=== PATIENT | female | born 1955 | race African-American/Black ===

== ENCOUNTER 2017-02-27 18:34 | Inpatient (IN) | payer OTHER ==
[~2017-02-27] VITALS: Ht 167.6 cm; Wt 82.6 kg
[~2017-02-27 18:34] MED LIST: AMOX1TAB11 PO; FLUC100T7 PO
[2017-02-27 19:30] VITALS: BP 138/79
[2017-02-27] MEDS ORDERED: HYOSCYAMINE 0.125 MG TAB.RAPDIS PO PRN (21:30)
[2017-02-27] MEDS: oxyCODONE/APAP 10/325 1 TAB TABLET PO PRN (22:39)
[2017-02-27 23:00] VITALS: BP 117/79
[2017-02-27] MEDS: ATORVASTATIN CALCIUM 40 MG TABLET. PO SCH (23:10)
[2017-02-27] MEDS: DICYCLOMINE HCL 10 MG CAPSULE PO SCH (23:10)
[2017-02-27] MEDS: LATANOPROST 0.005% OPHTH SOLUTION 2.5ML BOTTLE. OU SCH (23:10)
[2017-02-27] MEDS: INSULIN DETEMIR 300 UNITS/3 ML INSULN.PEN. SQ SCH (23:17)
[2017-02-27] MEDS: CLINDAMYCIN 600MG PREMIX 50 ML IV SCH (23:41)
[2017-02-28] MEDS: fentaNYL PF VIAL 100 MCG/2 ML VIAL IV PRN ×2 (00:05→03:27)
[2017-02-28] MEDS: METOCLOPRAMIDE 5 MG TABLET. PO SCH ×5 (00:05→19:52)
[2017-02-28 02:27] LABS: BASO # 0.1 x10^3/uL (0.0-0.2); BASO % 1 % (0-3); EOS % 1 % (0-3); HEMOGLOBIN 11.5 g/dL (12.0-15.5); LYMPH # 3.1 x10^3/uL (1.0-4.8); LYMPH % 24 % (24-48); MEAN CORPUSCULAR HEMOGLOBIN 25 pg (25-35); MEAN CORPUSCULAR HGB CONC 32 g/dL (31-37); MEAN CORPUSCULAR VOLUME 78 fL (79-100); MONO % 7 % (0-9); NEUT % 68 % (31-73); PLATELET COUNT 384 x10^3/uL (140-400); RED BLOOD COUNT 4.61 x10^6/uL (3.50-5.40); WHITE BLOOD COUNT 13.2 x10^3/uL (4.0-11.0)
[2017-02-28 02:54] LABS: ALBUMIN 3.2 g/dL (3.4-5.0); ALBUMIN/GLOBULIN RATIO 0.8 (1.0-1.7); CREATININE 0.8 mg/dL (0.6-1.0); GFR 87.7; POTASSIUM 3.9 mmol/L (3.5-5.1); TOTAL BILIRUBIN 0.3 mg/dL (0.2-1.0); TOTAL PROTEIN 7.3 g/dL (6.4-8.2)
[2017-02-28 03:13] VITALS: BP 114/70
[2017-02-28] MEDS: CLINDAMYCIN 600MG PREMIX 50 ML IV SCH ×4 (05:54→23:56)
[2017-02-28] MEDS: oxyCODONE/APAP 10/325 1 TAB TABLET PO PRN ×2 (06:46→19:52)
[2017-02-28 07:00] VITALS: BP 151/76
[2017-02-28] MEDS: DICYCLOMINE HCL 10 MG CAPSULE PO SCH ×4 (07:50→21:13)
[2017-02-28] MEDS: ASPIRIN ENTERIC COATED 81 MG TABLET.DR. PO SCH (07:51)
[2017-02-28] MEDS: PANTOPRAZOLE 40 MG TABLET.DR. PO SCH (07:51)
[2017-02-28] MEDS: CARVEDILOL 12.5 MG TABLET. PO SCH ×2 (07:51→17:00)
[2017-02-28] MEDS: LOSARTAN POTASSIUM 50 MG TABLET. PO SCH (07:51)
[2017-02-28] MEDS: INSULIN ASPART 300 UNITS/3 ML INSULN.PEN SQ SCH ×3 (08:00→16:30)
[2017-02-28] MEDS ORDERED: CLINDAMYCIN HCL 150 MG CAPSULE. PO ONE (09:45)
[2017-02-28 11:00] VITALS: BP 119/52
[2017-02-28] MEDS ORDERED: HYDROmorphone 2 MG/ML VIAL IM ONE (11:45)
--- NOTE | 2017-02-28 12:26 | PDOC ---
Provider Note Provider Note Pt seen.H&P dictated. #[id number] BENITO ANGULO MD February 28, 2017 12:25
--- NOTE | 2017-02-28 14:11 | HP ---
ADMIT DATE: 02/27/2017 LOCATION: 424. REASON FOR ADMISSION TO THE HOSPITAL: Infected abscess in the right axilla; diabetes; hidradenitis, recurrent. HISTORY OF PRESENT ILLNESS: The patient is a 61-year-old female, patient known to us. She has a history of hidradenitis with infections on and off in the past and she had seen General Surgery, Plastic Surgery, has been to multiple hospitals, she gets flareups on and off. She was having pain, fever, and drainage from the infected nodes in the axilla, was admitted to the hospital. PAST MEDICAL HISTORY: She has a history of type 2 diabetes, diabetic retinopathy, gastroparesis, neuropathy, hypotension, asthma, hyperlipidemia, atherosclerosis, schizoaffective disorders. PAST SURGICAL HISTORY: ; hysterectomy; salpingo-oophorectomy; had EGDs; cardiac catheterization in 2009, coronary spasm at that time; she had multiple surgeries pertaining to the abscess. ALLERGIES: SHE IS ALLERGIC TO METRONIDAZOLE, VANCOMYCIN, AND LISINOPRIL. PER THE PATIENT, SHE HAD A SEVERE ANAPHYLACTIC REACTION WITH METRONIDAZOLE. FAMILY HISTORY: Diabetes, hypertension, pulmonary embolism in father. MEDICATIONS: Aspirin 81 mg daily, Humalog 55 units 3 times daily, Lantus 65 at bedtime, eyedrops latanoprost daily, Lipitor 40 mg daily, losartan 50 mg daily, Percocet 10 mg q. 8 hours, ProAir 2 puffs 4 times daily, Phenergan 25 mg daily, Protonix 40 mg daily, Travatan eyedrops daily, Zofran for nausea. She is on Reglan. PERSONAL HISTORY: Smokes half a pack. Denies alcohol. Denies any street drugs, but she takes narcotic pain medications. REVIEW OF SYMPTOMS: Complains of pain, fever, and drainage. Rest of her system was reviewed and negative. PHYSICAL EXAMINATION: GENERAL: The patient is in pain. VITAL SIGNS: Temperature 98, pulse 98, respirations 18, blood pressure 117/79, 97 on room air. HEENT: Head is atraumatic. Pupils equal. Oral cavity: No congestion. NECK: Supple. Thyroid not enlarged. JVD not elevated. CHEST: Symmetrical, has some keloids in the chest. CARDIOVASCULAR: S1, S2. LUNGS: Clear to auscultation. ABDOMEN: Soft, no mass palpable. EXTERNAL GENITALIA: No Mukherjee. RECTAL: Deferred. EXTREMITIES: No calf tenderness. The patient has tenderness with swelling in the right axilla with some pus coming out. LABORATORY DATA: Shows a white count of 13, hemoglobin 11.5, platelets 384. Electrolytes show sodium 138, potassium 3.9, chloride 102, bicarbonate 27, BUN 13, creatinine 0.8, glucose 167. LFT was normal. FINAL IMPRESSION: 1. Abscess, axilla. 2. History of hidradenitis. 3. Diabetes, insulin-dependent. 4. Complications from diabetes including diabetic neuropathy, gastroparesis. 5. Hypertension and hyperlipidemia. 6. Severe allergies to vancomycin, metronidazole, and lisinopril. PLAN: At this time, admit to hospital, start on clindamycin, IV pain control with Dilaudid. ID is consulted. Further recommendations to follow. Wound cultures. BENITO ANGULO MD DR: JCARLOS/parul JOB#: [id number] / [id number]
[2017-02-28 15:00] VITALS: BP 128/85
[2017-02-28] MEDS: PROMETHAZINE 12.5 MG TABLET. PO PRN ×2 (15:06→23:55)
[2017-02-28] MEDS: LIDO:MAALOX:DONNATAL 1:1:1 15 ML SINGLE DOSE SWSW PRN (17:54)
[2017-02-28 19:00] VITALS: BP 141/103
[2017-02-28] MEDS: ATORVASTATIN CALCIUM 40 MG TABLET. PO SCH (21:13)
[2017-02-28] MEDS: INSULIN DETEMIR 300 UNITS/3 ML INSULN.PEN. SQ SCH (21:14)
[2017-02-28] MEDS: HYDROmorphone 2 MG/ML VIAL IV PRN (23:55)
[2017-03-01] VITALS (7 sets, daily range): BP systolic 83–141; BP diastolic 44–100
[2017-03-01] MEDS: HYDROmorphone 2 MG/ML VIAL IV PRN ×6 (03:19→21:44)
[2017-03-01 05:23] LABS: BASO # 0.1 x10^3/uL (0.0-0.2); BASO % 1 % (0-3); EOS % 2 % (0-3); HEMATOCRIT 40.2 % (36.0-47.0); HEMOGLOBIN 12.6 g/dL (12.0-15.5); LYMPH # 2.9 x10^3/uL (1.0-4.8); LYMPH % 25 % (24-48); MEAN CORPUSCULAR HEMOGLOBIN 25 pg (25-35); MEAN CORPUSCULAR HGB CONC 31 g/dL (31-37); MEAN CORPUSCULAR VOLUME 80 fL (79-100); MONO % 7 % (0-9); NEUT % 66 % (31-73); PLATELET COUNT 323 x10^3/uL (140-400); RED BLOOD COUNT 5.01 x10^6/uL (3.50-5.40); RED CELL DISTRIBUTION WIDTH 16.1 % (11.5-14.5); WHITE BLOOD COUNT 11.6 x10^3/uL (4.0-11.0)
[2017-03-01 05:30] LABS: CALCIUM 9.6 mg/dL (8.5-10.1); CREATININE 0.8 mg/dL (0.6-1.0); GFR 87.7; POTASSIUM 4.5 mmol/L (3.5-5.1)
[2017-03-01] MEDS: CLINDAMYCIN 600MG PREMIX 50 ML IV SCH ×3 (06:20→21:45)
[2017-03-01] MEDS: INSULIN ASPART 300 UNITS/3 ML INSULN.PEN SQ SCH ×3 (08:06→17:05)
[2017-03-01] MEDS: PROMETHAZINE 12.5 MG TABLET. PO PRN (08:07)
[2017-03-01] MEDS: PANTOPRAZOLE 40 MG TABLET.DR. PO SCH (08:08)
[2017-03-01] MEDS: CARVEDILOL 12.5 MG TABLET. PO SCH ×2 (08:08→17:01)
[2017-03-01] MEDS: LOSARTAN POTASSIUM 50 MG TABLET. PO SCH (08:09)
[2017-03-01] MEDS: METOCLOPRAMIDE 5 MG TABLET. PO SCH ×4 (08:09→21:44)
[2017-03-01] MEDS: DICYCLOMINE HCL 10 MG CAPSULE PO SCH ×4 (08:09→21:44)
[2017-03-01] MEDS: ASPIRIN ENTERIC COATED 81 MG TABLET.DR. PO SCH (08:09)
--- NOTE | 2017-03-01 10:50 | PDOC ---
PROGRESS NOTES Subjective Subjective Pt smiling today Objective Objective Vital Signs Date Time Temp Pulse Resp B/P (MAP) Pulse Ox O2 Delivery O2 Flow Rate FiO2 03/01/17 10:23 16 92 Room Air 03/01/17 08:09 61 130/67 03/01/17 07:00 97.6 97.6 03/01/17 00:18 97.0 Intake and Output 03/01/17 07:00 Intake Total 1220 ml Output Total 100 ml Balance 1120 ml Intake Oral 1220 ml Output Emesis 100 ml # Voids 4 Physical Exam Abdomen: Normal bowel sounds, Soft Heart: Regular rate, Normal S1 Extremities: No clubbing General: Alert HEENT: Atraumatic Lungs: Clear to auscultation MUSCULOSKELETAL: No deformity Neck: Supple Neuro: Normal speech Psych/Mental Status: Mental status NL COMMENT drainage from axilla rt Assessment Assessment FINAL IMPRESSION: 1. Abscess, axilla. 2. History of hidradenitis. 3. Diabetes, insulin-dependent. 4. Complications from diabetes including diabetic neuropathy, gastroparesis. 5. Hypertension and hyperlipidemia. 6. Severe allergies to vancomycin, metronidazole, and lisinopril. PLAN: Mid line catheter placed yesterday. IV dilaudid. IV Clindamycin. wbc trending down.11 At this time, admit to hospital, start on clindamycin, IV pain control with Dilaudid. ID is consulted. Further recommendations to follow. Wound cultures. Problems: Comment Review of Relevant I have reviewed the following items amelie (where applicable) has been applied. Labs Laboratory Tests Test 02/28/17 11:42 02/28/17 12:31 02/28/17 16:20 02/28/17 20:28 Glucose (Fingerstick) 114 mg/dL (70-99) 114 mg/dL (70-99) 180 mg/dL (70-99) 168 mg/dL (70-99) Test 03/01/17 04:10 03/01/17 07:13 White Blood Count 11.6 x10^3/uL (4.0-11.0) Red Blood Count 5.01 x10^6/uL (3.50-5.40) Hemoglobin 12.6 g/dL (12.0-15.5) Hematocrit 40.2 % (36.0-47.0) Mean Corpuscular Volume 80 fL (79-100) Mean Corpuscular Hemoglobin 25 pg (25-35) Mean Corpuscular Hemoglobin Concent 31 g/dL (31-37) Red Cell Distribution Width 16.1 % (11.5-14.5) Platelet Count 323 x10^3/uL (140-400) Neutrophils (%) (Auto) 66 % (31-73) Lymphocytes (%) (Auto) 25 % (24-48) Monocytes (%) (Auto) 7 % (0-9) Eosinophils (%) (Auto) 2 % (0-3) Basophils (%) (Auto) 1 % (0-3) Neutrophils # (Auto) 7.6 x10^3uL (1.8-7.7) Lymphocytes # (Auto) 2.9 x10^3/uL (1.0-4.8) Monocytes # (Auto) 0.8 x10^3/uL (0.0-1.1) Eosinophils # (Auto) 0.2 x10^3/uL (0.0-0.7) Basophils # (Auto) 0.1 x10^3/uL (0.0-0.2) Sodium Level 138 mmol/L (136-145) Potassium Level 4.5 mmol/L (3.5-5.1) Chloride Level 102 mmol/L (98-107) Carbon Dioxide Level 26 mmol/L (21-32) Anion Gap 10 (6-14) Blood Urea Nitrogen 14 mg/dL (7-20) Creatinine 0.8 mg/dL (0.6-1.0) Estimated GFR (Cockcroft-Gault) 87.7 Glucose Level 138 mg/dL (70-99) Calcium Level 9.6 mg/dL (8.5-10.1) Triglycerides Level 88 mg/dL (0-150) Cholesterol Level 200 mg/dL (0-200) LDL Cholesterol, Calculated 116 mg/dL (0-100) VLDL Cholesterol, Calculated 18 mg/dL (0-40) Non-HDL Cholesterol Calculated 134 mg/dL (0-129) HDL Cholesterol 66 mg/dL (40-60) Cholesterol/HDL Ratio 3.0 Thyroid Stimulating Hormone (TSH) 4.555 uIU/mL (0.358-3.74) Glucose (Fingerstick) 153 mg/dL (70-99) Microbiology 02/27/17 Gram Stain - Final, Complete Medications Current Medications Hydromorphone HCl (Dilaudid) 2 mg PRN Q3HRS PRN IV PAIN Last administered on 09:53; Start 02/28/17 at 11:45 Hydromorphone HCl (Dilaudid) 4 mg 1X ONCE IM Last administered on 02/28/17 11 :49; Start 02/28/17 at 11:45; Stop 02/28/17 at 12:05; Status DC Latanoprost (Xalatan) 1 drop QHS OU Last administered on 02/27/17 23:10; Start 02/28/17 at 21:00 Multi-Ingredient Mouthwash/Gargle (Gi Cocktail Single Dose) 15 ml PRN QID PRN SWSW GI SYMPTOMS Last administered on 02/28/17 17:54; Start 02/28/17 at 17:45 Ondansetron HCl (Zofran) 4 mg PRN Q6HRS PRN IV NAUSEA/VOMITING; Start 03/01/17 at 10:45 Vitals/I & O Vital Sign - Last 24 Hours 02/28/17 02/28/17 02/28/17 02/28/17 11:00 11:49 12:19 15:00 Temp 98.0 97.5 98.0 97.5 Pulse 76 86 Resp 18 16 16 20 B/P (MAP) 119/52 (74) 128/85 (99) Pulse Ox 97 97 97 99 O2 Delivery Room Air Room Air Room Air Room Air 02/28/17 02/28/17 03/01/17 03/01/17 19:00 19:45 00:18 03:28 Temp 97.5 97.8 98.0 97.5 97.8 98.0 Pulse 93 66 86 Resp 20 22 B/P (MAP) 141/103 (116) 133/89 (104) 141/100 (114) Pulse Ox 98 98 O2 Delivery Room Air Room Air Room Air Room Air O2 Flow Rate 97.0 03/01/17 03/01/17 03/01/17 03/01/17 07:00 08:00 08:08 08:09 Temp 97.6 97.6 Pulse 61 61 61 Resp 20 B/P (MAP) 130/67 (88) 130/67 130/67 Pulse Ox 92 O2 Delivery Room Air Room Air 03/01/17 03/01/17 09:53 10:23 Resp 16 16 Pulse Ox 92 92 O2 Delivery Room Air Room Air Intake and Output 02/28/17 02/28/17 03/01/17 15:00 23:00 07:00 Intake Total 1020 ml 200 ml Output Total 100 ml Balance 920 ml 200 ml BENITO ANGULO MD March 01, 2017 10:50
[2017-03-01] MEDS ORDERED: ONDANSETRON PF 4 MG/2 ML VIAL. IV PRN (11:00)
[2017-03-01] MEDS: ONDANSETRON PF 4 MG/2 ML VIAL. IV PRN ×2 (11:23→18:23)
--- NOTE | 2017-03-01 12:21 | ACF ---
Admission Forms Criteria WOUND COMPLICATIONS Clinical Indications for Inpatient Care (Place 'X' for any and all applicable criteria): Ongoing inpatient care may be indicated for wound complications with ANY ONE of the following (1) (15): [ ]I. Infection with ANY ONE of the following(32)(33): [ ]a) Temperature greater than 38.5 C (101.3 F) [ ]b) Evidence of tissue necrosis [ ]c) Erythema diameter expanding around wound despite treatment [ ]d) Mental status changes [ ]e) Dehydration [ ]f) Bacteremia [ ]g) Hemodynamic instability [ ]h) Suspected necrotizing fasciitis [ ]i) Rapidly spreading lesions [ ]j) High-risk location (eg, perineum, sternum, orbit) [ ]k) High-risk coexisting clinical condition as indicated by ANY ONE of the following: [ ]i) Poorly controlled diabetes [ ]ii) Cirrhosis [ ]iii) Renal failure [ ]iv) Neutropenia [ ] v) Asplenia [ ]vi) Immunosuppression (eg, AIDS, chronic corticosteroid use) [ ]viii) Other high-risk medical comorbidities [ ] II. Dehiscence requiring frequent monitoring or immediate treatment [ ] III. Hematoma with ANY ONE of the following: [ ]a) Hemodynamic instability or acute anemia due to rapid development of hematoma [ ]b) Neck hematoma causing airway compression [ ]c) Retroperitoneal hematoma [ ]d) Uncontrolled coagulopathy [ ]IV. Seroma with evidence of secondary infection and requirement for IV antibiotics [D](31) [X]V. Pain that cannot be managed at lower level of care Extended stay beyond goal length of stay for primary condition may be needed until ALL of the following are present(1)(33)(34): [ ]a) Afebrile or fever resolving [ ]b) Hemodynamic stability [ ]c) Pain resolving [ ]d) Wound closed, continuity adequately restored, or wound manageable at lower level of care [ ]e) No drain needed or drain care manageable at lower level of care [ ]f) Wound hematoma or seroma resolving [ ]g) Antibiotics not needed or regimen manageable at lower level of care(38) [ ]h) Dressing care manageable at lower level of care [ ]i) Coagulopathy absent, resolved, or treatable at lower level of care [ ]j) Medical comorbidities resolved or treatable at lower level of care The original [facility] [employer] content created by Raghav Nicolas has been revised. The portions of the content which have been revised are identified through the use of italic text or in bold, and Raghav Nicolas has neither reviewed nor approved the modified material. All other unmodified content is copyright Raghav Nicolas. Please see references footnoted in the original Raghav Nicolas edition 2016 Admission Criteria Met?: Yes ARMAAN HOANG March 01, 2017 12:21
[2017-03-01] MEDS: LIDO:MAALOX:DONNATAL 1:1:1 15 ML SINGLE DOSE SWSW PRN (18:28)
[2017-03-01] MEDS: INSULIN DETEMIR 300 UNITS/3 ML INSULN.PEN. SQ SCH (21:00)
[2017-03-01] MEDS: LATANOPROST 0.005% OPHTH SOLUTION 2.5ML BOTTLE. OU SCH (21:44)
[2017-03-01] MEDS: ATORVASTATIN CALCIUM 40 MG TABLET. PO SCH (21:44)
[2017-03-02 03:02] VITALS: BP 120/70
[2017-03-02 05:18] LABS: BASO # 0.1 x10^3/uL (0.0-0.2); BASO % 1 % (0-3); EOS % 2 % (0-3); HEMOGLOBIN 12.5 g/dL (12.0-15.5); LYMPH # 2.5 x10^3/uL (1.0-4.8); LYMPH % 25 % (24-48); MEAN CORPUSCULAR HEMOGLOBIN 26 pg (25-35); MEAN CORPUSCULAR HGB CONC 34 g/dL (31-37); MEAN CORPUSCULAR VOLUME 78 fL (79-100); MONO % 7 % (0-9); NEUT % 66 % (31-73); PLATELET COUNT 353 x10^3/uL (140-400); RED BLOOD COUNT 4.76 x10^6/uL (3.50-5.40); RED CELL DISTRIBUTION WIDTH 15.7 % (11.5-14.5); WHITE BLOOD COUNT 10.1 x10^3/uL (4.0-11.0)
[2017-03-02] MEDS: CLINDAMYCIN 600MG PREMIX 50 ML IV SCH ×3 (06:00→21:55)
[2017-03-02] MEDS: HYDROmorphone 2 MG/ML VIAL IV PRN ×4 (06:31→20:42)
[2017-03-02 07:00] VITALS: BP 123/63
[2017-03-02] MEDS: PANTOPRAZOLE 40 MG TABLET.DR. PO SCH (08:06)
[2017-03-02] MEDS: LOSARTAN POTASSIUM 50 MG TABLET. PO SCH (08:07)
[2017-03-02] MEDS: ASPIRIN ENTERIC COATED 81 MG TABLET.DR. PO SCH (08:07)
[2017-03-02] MEDS: DICYCLOMINE HCL 10 MG CAPSULE PO SCH ×4 (08:07→20:38)
[2017-03-02] MEDS: CARVEDILOL 12.5 MG TABLET. PO SCH ×2 (08:08→17:13)
[2017-03-02] MEDS: METOCLOPRAMIDE 5 MG TABLET. PO SCH ×4 (08:08→20:38)
[2017-03-02] MEDS: INSULIN ASPART 300 UNITS/3 ML INSULN.PEN SQ SCH ×3 (08:16→17:19)
[2017-03-02 11:00] VITALS: BP 109/63
--- NOTE | 2017-03-02 11:29 | PDOC ---
PROGRESS NOTES Subjective Subjective worried that she is developing rash with antibiotics Objective Objective Vital Signs Date Time Temp Pulse Resp B/P (MAP) Pulse Ox O2 Delivery O2 Flow Rate FiO2 03/02/17 08:16 Room Air 03/02/17 08:08 72 123/63 03/02/17 07:00 98.4 20 94 98.4 03/01/17 19:45 97.0 Intake and Output 03/02/17 07:00 Intake Total 960 ml Balance 960 ml Intake Oral 960 ml # Voids 5 Physical Exam Abdomen: Normal bowel sounds, Soft Heart: Regular rate, Normal S1 Extremities: No clubbing General: Alert HEENT: Atraumatic Lungs: Clear to auscultation MUSCULOSKELETAL: No deformity Neck: Supple Neuro: Normal speech Psych/Mental Status: Mental status NL COMMENT drainage from axilla rt Assessment Assessment FINAL IMPRESSION: 1. Abscess, axilla. 2. History of hidradenitis. 3. Diabetes, insulin-dependent. 4. Complications from diabetes including diabetic neuropathy, gastroparesis. 5. Hypertension and hyperlipidemia. 6. Severe allergies to vancomycin, metronidazole, and lisinopril. PLAN: watch for rashes,running out of meds due to allergy to multiple meds Mid line catheter placed . IV dilaudid. IV Clindamycin.c/s neg wbc trending down.10 At this time, admit to hospital, start on clindamycin, IV pain control with Dilaudid. ID is consulted. Further recommendations to follow. Wound cultures. Problems: Comment Review of Relevant I have reviewed the following items amelie (where applicable) has been applied. Labs Laboratory Tests Test 03/01/17 11:41 03/01/17 16:24 03/01/17 21:02 03/02/17 04:26 Glucose (Fingerstick) 67 mg/dL (70-99) 146 mg/dL (70-99) 76 mg/dL (70-99) White Blood Count 10.1 x10^3/uL (4.0-11.0) Red Blood Count 4.76 x10^6/uL (3.50-5.40) Hemoglobin 12.5 g/dL (12.0-15.5) Hematocrit 37.0 % (36.0-47.0) Mean Corpuscular Volume 78 fL (79-100) Mean Corpuscular Hemoglobin 26 pg (25-35) Mean Corpuscular Hemoglobin Concent 34 g/dL (31-37) Red Cell Distribution Width 15.7 % (11.5-14.5) Platelet Count 353 x10^3/uL (140-400) Neutrophils (%) (Auto) 66 % (31-73) Lymphocytes (%) (Auto) 25 % (24-48) Monocytes (%) (Auto) 7 % (0-9) Eosinophils (%) (Auto) 2 % (0-3) Basophils (%) (Auto) 1 % (0-3) Neutrophils # (Auto) 6.7 x10^3uL (1.8-7.7) Lymphocytes # (Auto) 2.5 x10^3/uL (1.0-4.8) Monocytes # (Auto) 0.7 x10^3/uL (0.0-1.1) Eosinophils # (Auto) 0.2 x10^3/uL (0.0-0.7) Basophils # (Auto) 0.1 x10^3/uL (0.0-0.2) Test 03/02/17 07:38 Glucose (Fingerstick) 158 mg/dL (70-99) Microbiology 02/27/17 Gram Stain - Final, Complete Vitals/I & O Vital Sign - Last 24 Hours 03/01/17 03/01/17 03/01/17 03/01/17 13:15 14:59 17:01 18:23 Temp 97.4 97.4 Pulse 74 74 Resp 16 20 16 B/P (MAP) 101/64 (76) 101/64 Pulse Ox 96 94 94 O2 Delivery Room Air Room Air Room Air 03/01/17 03/01/17 03/01/17 03/01/17 18:53 19:45 19:50 23:08 Temp 97.5 97.8 97.5 97.8 Pulse 74 62 Resp 16 18 18 B/P (MAP) 83/44 (57) 104/59 (74) Pulse Ox 94 93 96 O2 Delivery Room Air Room Air Room Air O2 Flow Rate 97.0 03/02/17 03/02/17 03/02/17 03/02/17 03:02 07:00 08:07 08:08 Temp 97.5 98.4 97.5 98.4 Pulse 90 72 90 72 Resp 18 20 B/P (MAP) 120/70 (87) 123/63 (83) 120/70 123/63 Pulse Ox 96 94 O2 Delivery Room Air Room Air 03/02/17 08:16 O2 Delivery Room Air Intake and Output 03/01/17 03/01/17 03/02/17 15:00 23:00 07:00 Intake Total 380 ml 580 ml Balance 380 ml 580 ml BENITO ANGULO MD March 02, 2017 11:29
[2017-03-02 15:00] VITALS: BP 108/61
[2017-03-02] MEDS: oxyCODONE/APAP 10/325 1 TAB TABLET PO PRN (18:22)
[2017-03-02 19:34] VITALS: BP 104/48
[2017-03-02] MEDS: LATANOPROST 0.005% OPHTH SOLUTION 2.5ML BOTTLE. OU SCH (20:38)
[2017-03-02] MEDS: ATORVASTATIN CALCIUM 40 MG TABLET. PO SCH (20:38)
[2017-03-02] MEDS: INSULIN DETEMIR 300 UNITS/3 ML INSULN.PEN. SQ SCH (21:00)
[2017-03-02] MEDS ORDERED: DEXTROSE 50% 25 GM / 50ML DISP.SYRIN. IV PRN (22:15)
[2017-03-02 23:31] VITALS: BP 104/55
[2017-03-03 00:35] VITALS: BP 120/61
[2017-03-03] MEDS: HYDROmorphone 2 MG/ML VIAL IV PRN (00:37)
[2017-03-03 03:22] VITALS: BP 123/84
[2017-03-03] MEDS: CLINDAMYCIN 600MG PREMIX 50 ML IV SCH (06:00)
[2017-03-03 07:00] VITALS: BP 138/71
[2017-03-03] MEDS ORDERED: INSULIN ASPART 300 UNITS/3 ML INSULN.PEN SQ SCH (08:00)
[2017-03-03] MEDS: oxyCODONE/APAP 10/325 1 TAB TABLET PO PRN (08:31)
[2017-03-03] MEDS: PANTOPRAZOLE 40 MG TABLET.DR. PO SCH (08:31)
[2017-03-03] MEDS: CARVEDILOL 12.5 MG TABLET. PO SCH (08:31)
[2017-03-03] MEDS: DICYCLOMINE HCL 10 MG CAPSULE PO SCH (08:31)
[2017-03-03] MEDS: METOCLOPRAMIDE 5 MG TABLET. PO SCH (08:31)
[2017-03-03] MEDS: ASPIRIN ENTERIC COATED 81 MG TABLET.DR. PO SCH (08:31)
[2017-03-03 08:32] VITALS: BP 138/71
[2017-03-03] MEDS: LOSARTAN POTASSIUM 50 MG TABLET. PO SCH (08:32)
[2017-03-03] MEDS: INSULIN ASPART 300 UNITS/3 ML INSULN.PEN SQ SCH (08:37)
--- NOTE | 2017-03-03 10:37 | PDOC ---
PROGRESS NOTES Subjective Subjective feels good ,wanting to go home Objective Objective Vital Signs Date Time Temp Pulse Resp B/P (MAP) Pulse Ox O2 Delivery O2 Flow Rate FiO2 03/03/17 09:35 18 Room Air 03/03/17 08:32 98 138/71 03/03/17 07:00 97.9 96 97.9 Intake and Output 03/03/17 07:00 Intake Total 50 ml Balance 50 ml IV Total 50 ml # Voids 8 Physical Exam Abdomen: Normal bowel sounds, Soft Heart: Regular rate, Normal S1 Extremities: No clubbing General: Alert HEENT: Atraumatic Lungs: Clear to auscultation MUSCULOSKELETAL: No deformity Neck: Supple Neuro: Normal speech Psych/Mental Status: Mental status NL COMMENT drainage from axilla rt improved Assessment Assessment FINAL IMPRESSION: 1. Abscess, axilla. 2. History of hidradenitis. 3. Diabetes, insulin-dependent. 4. Complications from diabetes including diabetic neuropathy, gastroparesis. 5. Hypertension and hyperlipidemia. 6. Severe allergies to vancomycin, metronidazole, and lisinopril. PLAN: d/c home Mid line catheter d/jenny bactroban ointment .c/s neg wbc trending down.10 Problems: Comment Review of Relevant I have reviewed the following items amelie (where applicable) has been applied. Labs Laboratory Tests Test 03/02/17 11:41 03/02/17 16:03 03/02/17 20:35 03/02/17 21:13 Glucose (Fingerstick) 127 mg/dL (70-99) 159 mg/dL (70-99) 63 mg/dL (70-99) 62 mg/dL (70-99) Test 03/02/17 22:04 03/02/17 22:24 03/03/17 00:28 03/03/17 07:03 Glucose (Fingerstick) 58 mg/dL (70-99) 72 mg/dL (70-99) 151 mg/dL (70-99) 131 mg/dL (70-99) Microbiology 02/27/17 Gram Stain - Final, Complete Medications Current Medications Clindamycin Phosphate 50 ml @ 100 mls/hr Q8HRS IV Last administered on t 21:55; Start 03/02/17 at 14:00 Dextrose (Dextrose 50%-Water Syringe) 12.5 gm PRN Q15MIN PRN IV SEE COMMENTS; Start 03/02/17 at 22:15 Insulin Aspart (NovoLOG) 0-5 UNITS TIDWMEALS SQ ; Start 03/03/17 at 08:00 Vitals/I & O Vital Sign - Last 24 Hours 03/02/17 03/02/17 03/02/17 03/02/17 11:00 12:08 15:00 15:44 Temp 98.4 98.2 98.4 98.2 Pulse 74 63 Resp 20 20 B/P (MAP) 109/63 (78) 108/61 (77) Pulse Ox 93 95 O2 Delivery Room Air Room Air Room Air Room Air 03/02/17 03/02/17 03/02/17 03/02/17 17:13 18:22 19:25 19:34 Temp 97.9 97.9 Pulse 63 66 Resp 18 B/P (MAP) 108/61 104/48 (66) Pulse Ox 100 100 O2 Delivery Room Air Room Air 03/02/17 03/02/17 03/02/17 03/03/17 19:40 20:42 23:31 00:35 Temp 97.9 97.9 Pulse 56 Resp 18 B/P (MAP) 104/55 (71) 120/61 (80) Pulse Ox 100 97 O2 Delivery Room Air Room Air Room Air 03/03/17 03/03/17 03/03/17 03/03/17 00:37 01:08 03:22 07:00 Temp 98.1 97.9 98.1 97.9 Pulse 67 98 Resp 18 20 B/P (MAP) 123/84 (97) 138/71 (93) Pulse Ox 97 97 97 96 O2 Delivery Room Air Room Air Room Air Room Air 03/03/17 03/03/17 03/03/17 03/03/17 07:50 08:31 08:31 08:32 Pulse 98 98 Resp 18 B/P (MAP) 138/71 138/71 O2 Delivery Room Air Room Air 03/03/17 09:35 Resp 18 O2 Delivery Room Air Intake and Output 03/02/17 03/02/17 03/03/17 15:00 23:00 07:00 Intake Total 50 ml Balance 50 ml BENITO ANGULO MD March 03, 2017 10:36
--- NOTE | 2017-03-04 20:34 | PDOC ---
Provider Note Provider Note Discharge summary dictated. #[id number] BENITO ANGULO MD March 04, 2017 20:33
--- NOTE | 2017-03-05 02:21 | DS ---
DATE OF DISCHARGE: 03/03/2017 REASON FOR ADMISSION TO THE HOSPITAL: Hidradenitis infection of the right axilla. CONSULTATIONS: None. PROCEDURES: Midline catheter placement. HOSPITAL COURSE: The patient is a 61-year-old female with history of diabetes, has chronic recurrent hidradenitis. The patient was having more drainage and pain and was admitted to the hospital, was given IV clindamycin. The patient has a poor IV, midline catheter was placed and the patient did improve. Fever was down. White count was down and drainage was less and the patient was discharged on oral antibiotics and follow with General Surgery outpatient for hidradenitis. The patient has seen Dermatology, plastic as well as general surgeons in the past for recurrent problems. BENITO ANGULO MD DR: JCARLOS/parul JOB#: [id number] / [id number]
== END 2017-03-03 10:25 | disposition home or self-care (01) | DRG 603 ==
LOC: 4 NORTH 19:18
PROVIDERS: ADMIT Internal Medicine; ATTEND Internal Medicine
PROC: 05H533Z Insertion of Infusion Device into Right Subclavian Vein, Percutaneous Approach (ICD-10-PCS; principal; 2017-02-28)
DX: L02.411 Cutaneous abscess of right axilla (principal); K31.84 Gastroparesis; E11.43 Type 2 diabetes mellitus with diabetic autonomic (poly)neuropathy; F25.9 Schizoaffective disorder, unspecified; E11.319 Type 2 diabetes mellitus with unspecified diabetic retinopathy without macular edema; E78.5 Hyperlipidemia, unspecified; I10 Essential (primary) hypertension; J45.909 Unspecified asthma, uncomplicated; F17.210 Nicotine dependence, cigarettes, uncomplicated; L73.2 Hidradenitis suppurativa; I70.90 Unspecified atherosclerosis; Z90.710 Acquired absence of both cervix and uterus; Z90.79 Acquired absence of other genital organ(s); Z90.722 Acquired absence of ovaries, bilateral; Z79.4 Long term (current) use of insulin; Z88.1 Allergy status to other antibiotic agents; Z88.8 Allergy status to other drugs, medicaments and biological substances; Z79.899 Other long term (current) drug therapy; Z82.49 Family history of ischemic heart disease and other diseases of the circulatory system; Z83.3 Family history of diabetes mellitus
CPT/HCPCS: 36415; 80048; 80053; 80061; 82962; 83036; 84443; 85027; 87205; J1170; J1815; J2405; J3010; J3490; J8597; Q0169

== ENCOUNTER 2017-03-29 13:07 | Inpatient (IN) | payer OTHER ==
[~2017-03-29] VITALS: Ht 167.6 cm; Wt 88.2 kg
[2017-03-29] MEDS ORDERED: FAMOTIDINE 20 MG/2 ML VIAL IVP ONE (14:00)
[2017-03-29] MEDS ORDERED: ONDANSETRON ODT 4 MG TAB.RAPDIS. PO ONE (14:00)
[2017-03-29] MEDS ORDERED: IV NORMAL SALINE 1000ML BAG 1,000 ML IV ONE (14:00)
[2017-03-29] MEDS: HYDROmorphone 2 MG/ML VIAL IV PRN ×4 (14:15→19:52)
[2017-03-29 14:28] LABS: BASO # 0.1 x10^3/uL (0.0-0.2); BASO % 1 % (0-3); EOS % 1 % (0-3); HEMATOCRIT 37.1 % (36.0-47.0); LYMPH % 21 % (24-48); MEAN CORPUSCULAR HEMOGLOBIN 25 pg (25-35); MEAN CORPUSCULAR HGB CONC 32 g/dL (31-37); MEAN CORPUSCULAR VOLUME 77 fL (79-100); MONO % 8 % (0-9); NEUT % 70 % (31-73); PLATELET COUNT 368 x10^3/uL (140-400); RED CELL DISTRIBUTION WIDTH 15.4 % (11.5-14.5)
[2017-03-29 14:43] LABS: CALCIUM 8.9 mg/dL (8.5-10.1); CREATININE 1.2 mg/dL (0.6-1.0); GFR 54.9; POTASSIUM 3.4 mmol/L (3.5-5.1)
[2017-03-29 14:49] LABS: ALBUMIN 3.1 g/dL (3.4-5.0); ALBUMIN/GLOBULIN RATIO 0.8 (1.0-1.7); TOTAL BILIRUBIN 0.2 mg/dL (0.2-1.0); TOTAL PROTEIN 7.1 g/dL (6.4-8.2)
--- NOTE | 2017-03-29 15:08 | PHYS DOC ---
Past Medical History Past Medical History: Hypertension Past Surgical History: Appendectomy, Cholecystectomy, Hysterectomy Alcohol Use: Occasionally Drug Use: None Adult General Chief Complaint Chief Complaint: HEMATEMESIS/VOMITING BLOOD HPI HPI 61-year-old female presenting to the emergency department with right upper quadrant abdominal epigastric pain. Pain is been present for about a week and comes and goes and is associated with nausea with reported hematemesis. She reports vomiting mild small amounts of blood clots. She had been seen at a local [facility] in [place] in the emergency department and subsequently discharged. Her symptoms recurred so she presents for further evaluation and care. Onset 1 week. Location GI tract. Duration intermittent. No alleviating or exacerbating factors present. Review of systems is negative for chest pain shortness of breath fevers or chills. She denies lightheadedness or syncope. She denies numbness weakness or tingling. All other review of systems is negative unless otherwise noted in history of present illness. ED course: 61-year-old female presenting to the emergency department today with nausea vomiting and hematemesis. Initially the patient's vital signs showed mild tachycardia. Afebrile. Pertinent physical exam findings showed minimal epigastric pain. No rebound tenderness or guarding is present. The patient was given Pepcid hydromorphone saline. Blood count and other blood work obtained. The patient was then admitted for further evaluation workup and care. Review of Systems Review of Systems SEE ABOVE. Current Medications Current Medications Current Medications Medications (Trade) Dose Ordered Sig/Karlo Start Time Stop Time Status Last Admin Dose Admin Famotidine (Pepcid) 20 mg 1X ONCE 03/29/17 14:00 03/29/17 14:01 DC 03/29/17 14:13 20 MG Hydromorphone HCl (Dilaudid) 0.5 mg PRN Q1HR PRN 03/29/17 14:00 03/29/17 14:15 0.5 MG Ondansetron HCl (Zofran Odt) 4 mg 1X ONCE 03/29/17 14:00 03/29/17 14:01 DC 03/29/17 14:12 4 MG Sodium Chloride 1,000 ml @ 1,000 mls/hr 1X ONCE 03/29/17 14:00 03/29/17 14:59 03/29/17 14:14 1,000 MLS/HR Allergies Allergies Allergies Coded Allergies Type Severity Reaction Last Updated Verified Iodinated Contrast- Oral and IV Dye Allergy Intermediate 03/29/17 Yes metronidazole Allergy Intermediate 03/29/17 Yes vancomycin Allergy Intermediate 03/29/17 Yes Physical Exam Physical Exam Constitutional: Well developed, well nourished, no acute distress, non-toxic appearance. [] HENT: Normocephalic, atraumatic, bilateral external ears normal, oropharynx moist, no oral exudates, nose normal. [] Eyes: PERRLA, EOMI, conjunctiva normal, no discharge. [] Neck: Normal range of motion, no tenderness, supple, no stridor. [] Cardiovascular:Heart rate regular rhythm, no murmur Lungs & Thorax: Bilateral breath sounds clear to auscultation [] Abdomen: Soft nontender abdomen without rebound tenderness or guarding present. Negative McBurneys point. Negative Ortega sign. No ecchymosis present. Skin: Warm, dry, no erythema, no rash. [] Back: No tenderness, no CVA tenderness. [] Extremities: No tenderness, no cyanosis, no clubbing, ROM intact, no edema. [] Neurologic: Alert and oriented X 3, normal motor function, normal sensory function, no focal deficits noted. Psychologic: Affect normal, judgement normal, mood normal. [] Current Patient Data Vital Signs Vital Signs Date Time Temp Pulse Resp B/P (MAP) Pulse Ox O2 Delivery O2 Flow Rate FiO2 03/29/17 14:15 19 97 Room Air 03/29/17 13:20 98.0 99 150/88 (108) 98.0 Lab Values Laboratory Tests Test 03/29/17 14:10 White Blood Count 14.0 x10^3/uL (4.0-11.0) H Red Blood Count 4.80 x10^6/uL (3.50-5.40) Hemoglobin 12.0 g/dL (12.0-15.5) Hematocrit 37.1 % (36.0-47.0) Mean Corpuscular Volume 77 fL (79-100) L Mean Corpuscular Hemoglobin 25 pg (25-35) Mean Corpuscular Hemoglobin Concent 32 g/dL (31-37) Red Cell Distribution Width 15.4 % (11.5-14.5) H Platelet Count 368 x10^3/uL (140-400) Neutrophils (%) (Auto) 70 % (31-73) Lymphocytes (%) (Auto) 21 % (24-48) L Monocytes (%) (Auto) 8 % (0-9) Eosinophils (%) (Auto) 1 % (0-3) Basophils (%) (Auto) 1 % (0-3) Neutrophils # (Auto) 9.7 x10^3uL (1.8-7.7) H Lymphocytes # (Auto) 3.0 x10^3/uL (1.0-4.8) Monocytes # (Auto) 1.1 x10^3/uL (0.0-1.1) Eosinophils # (Auto) 0.1 x10^3/uL (0.0-0.7) Basophils # (Auto) 0.1 x10^3/uL (0.0-0.2) Sodium Level 138 mmol/L (136-145) Potassium Level 3.4 mmol/L (3.5-5.1) L Chloride Level 101 mmol/L (98-107) Carbon Dioxide Level 29 mmol/L (21-32) Anion Gap 8 (6-14) Blood Urea Nitrogen 10 mg/dL (7-20) Creatinine 1.2 mg/dL (0.6-1.0) H Estimated GFR (Cockcroft-Gault) 54.9 BUN/Creatinine Ratio 8 (6-20) Glucose Level 182 mg/dL (70-99) H Calcium Level 8.9 mg/dL (8.5-10.1) Total Bilirubin 0.2 mg/dL (0.2-1.0) Aspartate Amino Transferase (AST) 12 U/L (15-37) L Alanine Aminotransferase (ALT) 16 U/L (14-59) Alkaline Phosphatase 161 U/L (46-116) H Total Protein 7.1 g/dL (6.4-8.2) Albumin 3.1 g/dL (3.4-5.0) L Albumin/Globulin Ratio 0.8 (1.0-1.7) L Lipase 201 U/L (73-393) Laboratory Tests 03/29/17 14:10 Laboratory Tests 03/29/17 14:10 EKG EKG [] Radiology/Procedures Radiology/Procedures [] Course & Med Decision Making Course & Med Decision Making Pertinent Labs and Imaging studies reviewed. (See chart for details) [] Dragon Disclaimer Dragon Disclaimer This electronic medical record was generated, in whole or in part, using a voice recognition dictation system. Departure Departure Impression: Primary Impression: Intractable nausea and vomiting Additional Impression: Epigastric abdominal pain Disposition: ADMITTED INPATIENT Admitting Physician: Madyson Martinez Condition: STABLE Referrals: BENITO ANGULO MD (PCP) Problem Qualifiers ZEINAB REYES MD Mar 29, 2017 15:08
[2017-03-29] MEDS ORDERED: ONDANSETRON PF 4 MG/2 ML VIAL. IV PRN (15:15)
[2017-03-29] MEDS: MORPHINE SULFATE 2 MG/ML DISP.SYRIN. IV PRN ×2 (15:28→22:00)
[2017-03-29] MEDS: IV NORMAL SALINE 1000ML BAG 1,000 ML IV SCH (16:34)
[2017-03-29 16:38] VITALS: BP 148/82
[2017-03-29 16:40] VITALS: BP 148/82
--- NOTE | 2017-03-29 18:18 | ACF ---
Admission Forms Criteria VOMITING Clinical Indications for Admission to Inpatient Care ( Place 'X' for any and all applicable criteria): Admission is indicated for 1 or more of the following(1)(2)(3): [ ]I. Complete or partial gastrointestinal obstruction [ ]II. Vomiting due to significant metabolic derangement (eg, severe hypercalcemia, diabetic ketoacidosis) [ ]III. Other cause of vomiting requiring hospitalization (eg, poisoning, increased intracranial pressure) [X]IV. Inpatient admission required rather than observation care because of 1 or more of the following [ ]i) Hemodynamic instability [X]ii) Vomiting that is severe or persistent indicated by 1 or more of the following 1) Numerous episodes of vomiting in past 24hours (eg, every 1 to 2 hours) 2) Suggests severe underlying cause or complication (eg , projectile, feculent, bilious, coffee ground, bloody) 3) Appropriate antiemetic treatment (eg, repeated oral or parenteral dosing) does not sufficiently reduce vomiting within 12 to 24 hours of treatment [X] 4) Treatment regimen necessary to adequately control vomiting requires inpatient level of care (eg, not immediately available in outpatient setting) [ ]iii) Severe electrolyte abnormalities requiring inpatient care [ ]iv) Severe pain requiring acute inpatient management( Continuous or frequent (eg, every 2 to 4 hours) parental analgesics or analgesic regimen that can only be performed or initiated in inpatient setting) [ ]v) High fever or infection requiring inpatient admission as indicated by 1 or more of the following(7)(8): [ ]1) Appropriate outpatient or observation care antimicrobial treatment unavailable, not effective, or not feasible [ ]2) Documented bacteremia [ ]3) Temp >104.9 degrees F (40.5 degrees C) (oral) [ ]4) Temp >103.1 degrees F (39.5 C) (oral) or <96.8 degrees F (36 C) (rectal) that does not respond to all emergency treatment measures [ ]vi) Acute renal failure [ ]vii) IV fluid required rather than oral rehydration to replace significant on going losses (greater than 3 L/m2 per day) [ ]viii) Parenteral nutrition regimen that must be implemented on inpatient basis [ ]ix) Other condition, treatment or monitoring requiring inpatient admission Extended stay beyond goal length of stay may be needed for(1)(4): [ ]a) Severe vomiting [ ]b) Persistent vomiting, vital sign changes, severe electrolyte imbalance , or diagnosed cause of vomiting that requires continued hospitalization (eg, gastrointestinal obstruction , increased intracranial pressure) [ ]c) Surgery to treat identified causes of vomiting (eg, bowel obstruction , intracranial process) [ ]d) Comorbid illness that requires inpatient care (eg, acute heart failure , renal failure) [ ]e) Need for inpatient endoscopy The original [employer] content created by [employer] has been revised. The portions of the content which have been revised are identified through the use of italic text or in bold, and [facility] has neither reviewed nor approved the modified material. All other unmodified content is copyright [employer]. Please see references footnoted in the original [facility] 2016 Admission Criteria Met?: Yes KARMA FISHER Mar 29, 2017 18:18
[2017-03-29 19:05] VITALS: BP 126/74
[2017-03-29 23:15] VITALS: BP 132/64
[2017-03-30] VITALS (7 sets, daily range): BP systolic 127–186; BP diastolic 45–105
[2017-03-30] MEDS: MORPHINE SULFATE 2 MG/ML DISP.SYRIN. IV PRN ×3 (00:03→06:41)
[2017-03-30] MEDS: IV NORMAL SALINE 1000ML BAG 1,000 ML IV SCH ×2 (00:04→07:08)
[2017-03-30 03:47] LABS: BASO # 0.1 x10^3/uL (0.0-0.2); BASO % 1 % (0-3); EOS % 2 % (0-3); HEMATOCRIT 38.7 % (36.0-47.0); HEMOGLOBIN 12.3 g/dL (12.0-15.5); LYMPH # 4.1 x10^3/uL (1.0-4.8); LYMPH % 32 % (24-48); MEAN CORPUSCULAR HEMOGLOBIN 25 pg (25-35); MEAN CORPUSCULAR HGB CONC 32 g/dL (31-37); MEAN CORPUSCULAR VOLUME 80 fL (79-100); MONO % 7 % (0-9); NEUT % 58 % (31-73); PLATELET COUNT 275 x10^3/uL (140-400); RED BLOOD COUNT 4.86 x10^6/uL (3.50-5.40); WHITE BLOOD COUNT 12.7 x10^3/uL (4.0-11.0)
[2017-03-30 04:00] LABS: CALCIUM 8.6 mg/dL (8.5-10.1); CREATININE 0.7 mg/dL (0.6-1.0); GFR 102.3; POTASSIUM 4.1 mmol/L (3.5-5.1)
[2017-03-30] MEDS: HYDROmorphone 2 MG/ML VIAL IV PRN ×5 (08:01→23:12)
[2017-03-30] MEDS ORDERED: INSU100I11 SQ (09:19)
[2017-03-30] MEDS ORDERED: HYOS0.1264 PO (09:31)
[2017-03-30] MEDS ORDERED: CARV25TA2 PO (09:31)
[2017-03-30] MEDS ORDERED: PROM25TA10 PO (09:31)
[2017-03-30] MEDS ORDERED: METO5TAB PO (09:31)
[2017-03-30] MEDS ORDERED: HYDR-2766 PO (09:31)
[2017-03-30] MEDS ORDERED: LATA2.5D3 EACHEYE (09:31)
[2017-03-30] MEDS ORDERED: INSU100I27 SQ (09:31)
[2017-03-30] MEDS ORDERED: DICY20TA3 PO (09:31)
[2017-03-30] MEDS ORDERED: LOSA50TA6 PO (09:31)
--- NOTE | 2017-03-30 09:32 | PDOC2 ---
GI CONSULT Reason For Consult: N/v HPI: HPI: 61 y/o female admitted through ER. History of chronic/recurrent GI issues including n/v and abd pain. Previous workup include EGD by Dr. Coleman in 2014 which was unrevealing, colonoscopy by Dr. Martinez in 2016 w/ a polyp, diverticulosis, and hemorrhoids, and previous GES revealing delayed gastric emptying. When I asked her about previous GI workup, she said "I don't want to talk about any of that." H/o DM, not sure about last A1c but thinks fairly well -controlled. She's not sure of all GI medications she takes at home but is able to name promethazine, ondansetron, and Reglan. She believes she takes Reglan TID PRN. Believes takes something for reflux, not sure what; regardless , apparently still has some of these symptoms. Note she takes Percocet a few times daily as well, for abdominal pain which seems to vary in location - currently RLQ. Thinks emesis might have been black a couple times. No hematochezia or melena. Some diarrhea. Denies NSAIDs. Apparently was just at [facility] and discharged. Wants a scope, feels like something is wrong. Per RN, no vomiting today, c/o severe nausea and requests IV pain medications ( specifically does not want PO pain meds), also asking to advance diet. PMH: PMH: GERD, gastroparesis, diverticulosis, hemorrhoids, DM, HTN, schizophrenia, anxiety/depression, suppurative axillary hidradenitis, appendectomy, cholecystectomy, hysterectomy, D&C, I&D axillary abscess, heart cath FH: Family History: No pertinent hx Social History: Smoke: <1 pack per day ALCOHOL: rare Drugs: None ROS: GEN: Denies fevers, chills, sweats HEENT: Denies blurred vision, sore throat CV: Denies chest pain RESP: Denies shortness of air, cough GI: Per HPI : Denies hematuria, dysuria ENDO: +weight loss (a few pounds) NEURO: Denies confusion, dizziness MSK: Denies weakness, joint pain/swelling SKIN: Denies jaundice, pruritus Vitals: Vitals: Vital Signs Date Time Temp Pulse Resp B/P (MAP) Pulse Ox O2 Delivery O2 Flow Rate FiO2 03/30/17 08:01 99 Room Air 03/30/17 07:00 97.9 86 14 165/85 (111) 97.9 Labs: Labs: Laboratory Tests Test 03/29/17 14:10 03/29/17 20:48 03/30/17 03:20 03/30/17 07:30 White Blood Count 14.0 x10^3/uL (4.0-11.0) 12.7 x10^3/uL (4.0-11.0) Red Blood Count 4.80 x10^6/uL (3.50-5.40) 4.86 x10^6/uL (3.50-5.40) Hemoglobin 12.0 g/dL (12.0-15.5) 12.3 g/dL (12.0-15.5) Hematocrit 37.1 % (36.0-47.0) 38.7 % (36.0-47.0) Mean Corpuscular Volume 77 fL (79-100) 80 fL (79-100) Mean Corpuscular Hemoglobin 25 pg (25-35) 25 pg (25-35) Mean Corpuscular Hemoglobin Concent 32 g/dL (31-37) 32 g/dL (31-37) Red Cell Distribution Width 15.4 % (11.5-14.5) 16.0 % (11.5-14.5) Platelet Count 368 x10^3/uL (140-400) 275 x10^3/uL (140-400) Neutrophils (%) (Auto) 70 % (31-73) 58 % (31-73) Lymphocytes (%) (Auto) 21 % (24-48) 32 % (24-48) Monocytes (%) (Auto) 8 % (0-9) 7 % (0-9) Eosinophils (%) (Auto) 1 % (0-3) 2 % (0-3) Basophils (%) (Auto) 1 % (0-3) 1 % (0-3) Neutrophils # (Auto) 9.7 x10^3uL (1.8-7.7) 7.3 x10^3uL (1.8-7.7) Lymphocytes # (Auto) 3.0 x10^3/uL (1.0-4.8) 4.1 x10^3/uL (1.0-4.8) Monocytes # (Auto) 1.1 x10^3/uL (0.0-1.1) 0.9 x10^3/uL (0.0-1.1) Eosinophils # (Auto) 0.1 x10^3/uL (0.0-0.7) 0.2 x10^3/uL (0.0-0.7) Basophils # (Auto) 0.1 x10^3/uL (0.0-0.2) 0.1 x10^3/uL (0.0-0.2) Sodium Level 138 mmol/L (136-145) 141 mmol/L (136-145) Potassium Level 3.4 mmol/L (3.5-5.1) 4.1 mmol/L (3.5-5.1) Chloride Level 101 mmol/L (98-107) 106 mmol/L (98-107) Carbon Dioxide Level 29 mmol/L (21-32) 26 mmol/L (21-32) Anion Gap 8 (6-14) 9 (6-14) Blood Urea Nitrogen 10 mg/dL (7-20) 6 mg/dL (7-20) Creatinine 1.2 mg/dL (0.6-1.0) 0.7 mg/dL (0.6-1.0) Estimated GFR (Cockcroft-Gault) 54.9 102.3 BUN/Creatinine Ratio 8 (6-20) Glucose Level 182 mg/dL (70-99) 130 mg/dL (70-99) Calcium Level 8.9 mg/dL (8.5-10.1) 8.6 mg/dL (8.5-10.1) Total Bilirubin 0.2 mg/dL (0.2-1.0) Aspartate Amino Transf (AST/SGOT) 12 U/L (15-37) Alanine Aminotransferase (ALT/SGPT) 16 U/L (14-59) Alkaline Phosphatase 161 U/L (46-116) Total Protein 7.1 g/dL (6.4-8.2) Albumin 3.1 g/dL (3.4-5.0) Albumin/Globulin Ratio 0.8 (1.0-1.7) Lipase 201 U/L (73-393) Glucose (Fingerstick) 195 mg/dL (70-99) 131 mg/dL (70-99) Allergies: Coded Allergies: Iodinated Contrast- Oral and IV Dye (Verified Allergy, Intermediate, ) metronidazole (Verified Allergy, Intermediate, 03/29/17) vancomycin (Verified Allergy, Intermediate, 03/29/17) Medications: Current Medications Medications (Trade) Dose Ordered Sig/Karlo Route PRN Reason Start Time Stop Time Status Last Admin Dose Admin Ondansetron HCl (Zofran Odt) 4 mg 1X ONCE PO 03/29/17 14:00 03/29/17 14:01 DC 03/29/17 14:12 Famotidine (Pepcid) 20 mg 1X ONCE IVP 03/29/17 14:00 03/29/17 14:01 DC 03/29/17 14:13 Hydromorphone HCl (Dilaudid) 0.5 mg PRN Q1HR PRN IV SEVERE PAIN 03/29/17 14:00 03/29/17 17:35 DC 03/29/17 17:35 Sodium Chloride 1,000 ml @ 1,000 mls/hr 1X ONCE IV 03/29/17 14:00 03/29/17 14:59 DC 03/29/17 14:14 Morphine Sulfate 2 mg PRN Q2HR PRN IV PAIN 03/29/17 15:15 03/30/17 15:14 03/30/17 06:41 Sodium Chloride 1,000 ml @ 125 mls/hr Q8H IV 03/29/17 15:08 03/30/17 15:07 03/30/17 07:08 Hydromorphone HCl (Dilaudid) 0.5 mg PRN Q1HR PRN IV SEVERE PAIN 03/29/17 15:30 03/30/17 09:07 DC 03/30/17 08:01 Imaging: Imaging: - PE: GEN: NAD, sitting on edge of bed, doesn't want to lay down for exam HEENT: Atraumatic, PERRLA LUNGS: CTAB HEART: RRR ABD: NABS, S/ND, doesn't seem too tender EXTREMITY: No edema SKIN: No rashes, no jaundice NEURO/PSYCH: A & O 3 A/P: A/P: Chronic abd pain, n/v Gastroparesis, GERD -previous GES at another facility, last EGD by Dr. Coleman in 2013 (unremarkable) -unclear what all she takes at home, but names anti-emetics and recognizes Reglan DM Narcotic use CRC screen -last colonoscopy 2015 -- Note plans to try regular diet, agree. Chronic issues w/ previous workup, ?non-compliance. Add PO PPI and Reglan susp. Other per Dr. Farris. MARIS ALMAZAN Mar 30, 2017 09:32
[2017-03-30] MEDS ORDERED: HYOSCYAMINE 0.125 MG TAB.RAPDIS PO PRN (10:15)
--- NOTE | 2017-03-30 10:20 | PDOC ---
Provider Note Provider Note Pt seen .H&P to be dictated. #[id number] BENITO ANGULO MD Mar 30, 2017 10:20
[2017-03-30] MEDS ORDERED: DEXTROSE 50% 25 GM / 50ML DISP.SYRIN. IV PRN (10:30)
[2017-03-30] MEDS ORDERED: LORazepam 0.5 MG TABLET PO PRN (10:45)
[2017-03-30] MEDS: CARVEDILOL 12.5 MG TABLET. PO SCH ×2 (10:53→17:21)
[2017-03-30] MEDS: LOSARTAN POTASSIUM 50 MG TABLET. PO SCH (10:54)
[2017-03-30] MEDS: PANTOPRAZOLE 40 MG TABLET.DR. PO SCH (10:54)
[2017-03-30] MEDS ORDERED: INSULIN ASPART 300 UNITS/3 ML INSULN.PEN SQ SCH (11:30)
[2017-03-30] MEDS ORDERED: METOCLOPRAMIDE HCL 10 MG/10 ML SOLUTION. PO SCH (11:30)
[2017-03-30] MEDS: INSULIN ASPART 300 UNITS/3 ML INSULN.PEN SQ SCH ×4 (12:10→17:00)
[2017-03-30] MEDS: DICYCLOMINE HCL 10 MG CAPSULE PO SCH ×3 (12:17→21:03)
[2017-03-30] MEDS ORDERED: METOCLOPRAMIDE 5 MG TABLET. PO SCH (13:00)
[2017-03-30] MEDS: PROMETHAZINE 12.5 MG TABLET. PO PRN (14:06)
[2017-03-30] MEDS: METOCLOPRAMIDE HCL 10 MG/2 ML VIAL. IV SCH ×2 (17:22→23:12)
[2017-03-30] MEDS ORDERED: LATANOPROST 0.005% OPHTH SOLUTION 2.5ML BOTTLE. OU SCH (21:00)
[2017-03-30] MEDS ORDERED: INSULIN DETEMIR 300 UNITS/3 ML INSULN.PEN. SQ SCH (21:00)
[2017-03-31] MEDS: HYDROmorphone 2 MG/ML VIAL IV PRN ×4 (01:59→08:16)
[2017-03-31 03:01] VITALS: BP 126/67
--- NOTE | 2017-03-31 04:03 | HP ---
ADMIT DATE: 03/29/2017 PATIENT LOCATION: 660. REASON FOR ADMISSION TO THE HOSPITAL: Nausea, vomiting and vomiting some blood. HISTORY OF PRESENT ILLNESS: The patient is a 61-year-old black female patient known to me. She has been in and out of hospitals lately, [place] a couple of weeks ago, then she was at [facility] and she was discharged from there and followed up with primary. She was having lot of nausea and she vomited some blood, came to the Emergency Room. The patient has a history of EGD and colonoscopies in the past, has diabetic gastroparesis and she is taking Reglan and Protonix. PAST MEDICAL HISTORY: History of diabetes insulin-dependent, hypertension, hyperlipidemia, anxiety, depression, chronic infections and boils on the axilla. ALLERGIES: TO IV VANCOMYCIN, IV METRONIDAZOLE AND IV CONTRAST. MEDICATIONS AT HOME: The patient is taking insulin Levemir 50 units at bedtime, NovoLog 25-55 units 3 times daily, losartan 50 mg daily, Reglan 5 mg 4 times daily, promethazine 25 mg twice a day, Coreg 25 mg twice a day, dicyclomine 20 mg twice a day, Levsin 0.25 three times a day, hydrocodone 10/325 one q. 6 hours and Diflucan for yeast infections. PERSONAL HISTORY: Smokes 1 pack. Denies alcohol. Denies any street drugs. The patient takes narcotic pain medications. FAMILY HISTORY: Positive for diabetes and hypertension. PAST SURGICAL HISTORY: Had EGD and colonoscopies, also had gallbladder surgery, hysterectomy and appendectomy. REVIEW OF SYMPTOMS: The patient says she has some boils lately, much better than before; nausea, vomiting, vomited some blood one time. Denies any black stools and no fever. Rest of the 14 systems was reviewed and negative. PHYSICAL EXAMINATION: GENERAL: The patient is anxious and hyper. VITAL SIGNS: At the time of admission shows temperature 98, pulse 99, respirations 20, blood pressure 150/88 and 100% on room air. HEENT: Head is atraumatic. Pupils are equal. Oral cavity: No congestion. NECK: Supple. Thyroid not enlarged. JVD not elevated. CHEST: Symmetrical, has some keloids. CARDIOVASCULAR: S1, S2. LUNGS: Clear to auscultation. ABDOMEN: Soft, bowel sounds present, no mass palpable. EXTERNAL GENITALIA: No Mukherjee. RECTAL: Deferred. EXTREMITIES: No calf tenderness, no edema. Pulses are 1+. The patient has some healed boils over the right axilla, nontender. LABORATORY DATA: Shows a white count of 14, came down to 12.7; hemoglobin 12 and platelets 368. Electrolytes show sodium 143, potassium 3.4, chloride 101, bicarb 29, BUN 10, creatinine 1.2, glucose 182. LFTs were normal. Lipase 201. FINAL IMPRESSION: 1. Nausea and vomiting secondary to diabetic gastroparesis. 2. Questionable history of vomiting blood, probably gastritis. 3. Insulin-dependent diabetes. 4. Hypertension. 5. Hyperlipidemia. 6. Multiple admissions, going to different hospitals, in last one month at least 3-4 hospitals. 7. Chronic hidradenitis. PLAN: At this time, was admitted to the hospital, hydrate with IV fluids, GI was consulted, Dilaudid for pain control and Protonix and see how the patient's condition improves. BENITO ANGULO MD DR: JCARLOS/parul JOB#: [id number] / [id number] [place]
[2017-03-31] MEDS: METOCLOPRAMIDE HCL 10 MG/2 ML VIAL. IV SCH ×2 (06:15→12:00)
[2017-03-31] MEDS: PANTOPRAZOLE 40 MG TABLET.DR. PO SCH (06:15)
[2017-03-31 07:00] VITALS: BP 165/80
[2017-03-31] MEDS: INSULIN ASPART 300 UNITS/3 ML INSULN.PEN SQ SCH ×4 (08:00→11:59)
[2017-03-31] MEDS: DICYCLOMINE HCL 10 MG CAPSULE PO SCH ×2 (08:16→12:16)
[2017-03-31] MEDS: LOSARTAN POTASSIUM 50 MG TABLET. PO SCH (08:16)
[2017-03-31] MEDS: CARVEDILOL 12.5 MG TABLET. PO SCH (08:17)
[2017-03-31] MEDS: PROMETHAZINE 12.5 MG TABLET. PO PRN (08:26)
[2017-03-31 09:27] LABS: CALCIUM 8.9 mg/dL (8.5-10.1); CREATININE 0.6 mg/dL (0.6-1.0); GFR 122.2; POTASSIUM 3.9 mmol/L (3.5-5.1)
[2017-03-31 09:30] LABS: BASO # 0.1 x10^3/uL (0.0-0.2); BASO % 1 % (0-3); EOS % 2 % (0-3); HEMATOCRIT 34.5 % (36.0-47.0); HEMOGLOBIN 11.4 g/dL (12.0-15.5); LYMPH # 2.3 x10^3/uL (1.0-4.8); LYMPH % 23 % (24-48); MEAN CORPUSCULAR HEMOGLOBIN 26 pg (25-35); MEAN CORPUSCULAR HGB CONC 33 g/dL (31-37); MEAN CORPUSCULAR VOLUME 77 fL (79-100); MONO % 6 % (0-9); NEUT % 69 % (31-73); PLATELET COUNT 344 x10^3/uL (140-400); RED BLOOD COUNT 4.48 x10^6/uL (3.50-5.40); RED CELL DISTRIBUTION WIDTH 15.3 % (11.5-14.5); WHITE BLOOD COUNT 10.2 x10^3/uL (4.0-11.0)
--- NOTE | 2017-03-31 09:59 | PDOC ---
PROGRESS NOTES Subjective Subjective feels better ,ready to go home Objective Objective Vital Signs Date Time Temp Pulse Resp B/P (MAP) Pulse Ox O2 Delivery O2 Flow Rate FiO2 03/31/17 08:46 97 Room Air 03/31/17 08:17 61 165/80 03/31/17 07:00 97.9 18 97.9 Intake and Output 03/31/17 07:00 Intake Total 1320 ml Output Total 2700 ml Balance -1380 ml Intake Oral 1320 ml Output Urine Total 2700 ml Physical Exam Abdomen: Normal bowel sounds, Soft Heart: Regular rate, Normal S1, Normal S2 Extremities: No clubbing General: Oriented X3 Lungs: Clear to auscultation MUSCULOSKELETAL: No deformity Neuro: Normal gait, Normal speech Psych/Mental Status: Mental status NL Skin: No breakdown Diagnosis Problem List Problems Medical Problems: (1) Epigastric abdominal pain Status: Acute (2) Intractable nausea and vomiting Status: Acute Assessment Assessment Problems Medical Problems: (1) Epigastric abdominal pain Status: Acute (2) Intractable nausea and vomiting Status: Acute FINAL IMPRESSION: 1. Nausea and vomiting secondary to diabetic gastroparesis. 2. Questionable history of vomiting blood, probably gastritis. 3. Insulin-dependent diabetes. 4. Hypertension. 5. Hyperlipidemia. 6. Multiple admissions, going to different hospitals, in last one month at least 3-4 hospitals. 7. Chronic hidradenitis. PLAN: labs improving wbc [address] scan abd &pelvis last week at [facility] ,was benign . tolerating diet ,no vomiting d/c home today. seen by GI ,no further procedures scheduled. At this time, was admitted to the hospital, hydrate with IV fluids, GI was consulted, Dilaudid for pain control and Protonix and see how the patient's condition improves. Problems: Plan Plan of Care Problems Medical Problems: (1) Epigastric abdominal pain Status: Acute (2) Intractable nausea and vomiting Status: Acute Comment Review of Relevant I have reviewed the following items amelie (where applicable) has been applied. Labs Laboratory Tests Test 03/30/17 11:34 03/30/17 17:05 03/30/17 21:08 03/31/17 08:01 Glucose (Fingerstick) 200 mg/dL (70-99) 63 mg/dL (70-99) 150 mg/dL (70-99) 152 mg/dL (70-99) Test 03/31/17 09:07 White Blood Count 10.2 x10^3/uL (4.0-11.0) Red Blood Count 4.48 x10^6/uL (3.50-5.40) Hemoglobin 11.4 g/dL (12.0-15.5) Hematocrit 34.5 % (36.0-47.0) Mean Corpuscular Volume 77 fL (79-100) Mean Corpuscular Hemoglobin 26 pg (25-35) Mean Corpuscular Hemoglobin Concent 33 g/dL (31-37) Red Cell Distribution Width 15.3 % (11.5-14.5) Platelet Count 344 x10^3/uL (140-400) Neutrophils (%) (Auto) 69 % (31-73) Lymphocytes (%) (Auto) 23 % (24-48) Monocytes (%) (Auto) 6 % (0-9) Eosinophils (%) (Auto) 2 % (0-3) Basophils (%) (Auto) 1 % (0-3) Neutrophils # (Auto) 7.0 x10^3uL (1.8-7.7) Lymphocytes # (Auto) 2.3 x10^3/uL (1.0-4.8) Monocytes # (Auto) 0.6 x10^3/uL (0.0-1.1) Eosinophils # (Auto) 0.2 x10^3/uL (0.0-0.7) Basophils # (Auto) 0.1 x10^3/uL (0.0-0.2) Sodium Level 141 mmol/L (136-145) Potassium Level 3.9 mmol/L (3.5-5.1) Chloride Level 105 mmol/L (98-107) Carbon Dioxide Level 30 mmol/L (21-32) Anion Gap 6 (6-14) Blood Urea Nitrogen 6 mg/dL (7-20) Creatinine 0.6 mg/dL (0.6-1.0) Estimated GFR (Cockcroft-Gault) 122.2 Glucose Level 144 mg/dL (70-99) Calcium Level 8.9 mg/dL (8.5-10.1) Medications Current Medications Carvedilol (Coreg) 25 mg BIDWMEALS PO Last administered on 03/31/17t 08:17; Start 03/30/17 at 11:00 Dextrose (Dextrose 50%-Water Syringe) 12.5 gm PRN Q15MIN PRN IV SEE COMMENTS; Start 03/30/17 at 10:30 Dicyclomine HCl (Bentyl) 20 mg QID PO Last administered on 03/31/17 08:16; Start 03/30/17 at 13:00 Hydromorphone HCl (Dilaudid) 2 mg PRN Q2HRS PRN IV SEVERE PAIN Last administered on 03/31/17 08:16; Start 03/30/17 at 10:00 Hyoscyamine (Anaspaz) 0.125 mg PRN Q4HRS PRN PO STOMACH CRAMPING; Start at 10:15 Insulin Aspart (NovoLOG) 0-7 UNITS TIDWMEALS SQ Last administered on 03/30/17 12:11; Start 03/30/17 at 12:00 Insulin Aspart (NovoLOG) 25 units TIDAC SQ Last administered on 03/31/17 08:24 ; Start 03/30/17 at 11:30 Insulin Aspart (NovoLOG) 55 units TIDAC SQ ; Start 03/30/17 at 11:30; Stop 03/30 at 11:30; Status DC Insulin Detemir (Levemir) 50 units HS SQ Last administered on 03/30/17 21:13; Start 03/30/17 at 21:00 Latanoprost (Xalatan) 1 drop QHS OU Last administered on 03/30/17 21:04; Start 03/30/17 at 21:00 Lorazepam (Ativan) 0.25 mg PRN Q6HRS PRN PO ANXIETY / AGITATION; Start at 10:45 Losartan Potassium (Cozaar) 50 mg DAILY PO Last administered on 03/31/17 08:16 ; Start 03/30/17 at 10:00 Metoclopramide HCl (Reglan) 5 mg QID PO ; Start 03/30/17 at 13:00; Status UNV Metoclopramide HCl (Reglan) 10 mg Q6HRS IV Last administered on 03/31/17 06:15 ; Start 03/30/17 at 18:00 Metoclopramide HCl (Reglan) 10 mg QIDACHS PO Last administered on 03/30/17 10: 54; Start 03/30/17 at 11:30; Stop 03/30/17 at 15:59; Status DC Pantoprazole Sodium (Protonix) 40 mg DAILYAC PO Last administered on 03/31/17 06:15; Start 03/30/17 at 10:30 Promethazine HCl (Phenergan) 25 mg PRN Q6HRS PRN PO NAUSEA/VOMITING Last administered on 03/31/17 08:26; Start 03/30/17 at 10:15 Vitals/I & O Vital Sign - Last 24 Hours 03/30/17 03/30/17 03/30/17 03/30/17 10:51 10:53 10:53 10:54 Temp 97.9 97.9 Pulse 88 88 86 86 Resp 18 B/P (MAP) 179/105 (129) 179/105 166/98 (120) 166/98 Pulse Ox 97 O2 Delivery Room Air 03/30/17 03/30/17 03/30/17 03/30/17 12:07 14:01 15:00 17:21 Temp 97.8 97.8 Pulse 78 78 Resp 18 B/P (MAP) 186/75 (112) 186/75 Pulse Ox 97 97 O2 Delivery Room Air Room Air Room Air 03/30/17 03/30/17 03/30/17 03/30/17 19:42 20:00 21:03 23:01 Temp 97.8 97.4 97.8 97.4 Pulse 72 77 Resp 18 17 20 B/P (MAP) 127/45 (72) 131/54 (79) Pulse Ox 97 97 98 O2 Delivery Room Air Room Air Room Air Room Air 03/30/17 03/31/17 03/31/17 03/31/17 23:12 01:59 02:29 03:01 Temp 98.2 98.2 Pulse 61 Resp 18 18 17 20 B/P (MAP) 126/67 (86) Pulse Ox 98 98 99 O2 Delivery Room Air Room Air Room Air 03/31/17 03/31/17 03/31/17 03/31/17 04:16 06:15 07:00 08:00 Temp 97.9 97.9 Pulse 61 Resp 18 18 B/P (MAP) 165/80 (108) Pulse Ox 99 99 97 O2 Delivery Room Air Room Air Room Air Room Air 03/31/17 03/31/17 03/31/17 03/31/17 08:16 08:16 08:17 08:46 Pulse 61 61 B/P (MAP) 165/80 165/80 Pulse Ox 97 97 O2 Delivery Room Air Room Air Intake and Output 03/30/17 03/30/17 03/31/17 15:00 23:00 07:00 Intake Total 350 ml 400 ml 570 ml Output Total 400 ml 500 ml 1800 ml Balance -50 ml -100 ml -1230 ml BENITO ANGULO MD Mar 31, 2017 09:59
[2017-03-31 11:00] VITALS: BP 138/79
--- NOTE | 2017-04-01 14:06 | PDOC3 ---
IM DISCHARGE SUMMARY Date of Admission Date of Admission Date of Admission: Mar 29, 2017 at 15:11 Date of Discharge Date of Discharge 03/31/17 Primary Diagnosis Primary Diagnosis Problems Medical Problems: (1) Epigastric abdominal pain Status: Acute (2) Intractable nausea and vomiting Status: Acute Problems: Consults Consults Gi dr Fields Procedures Procedures none Brief hospital course Brief hospital course This is 61 yr old year old female who presented with N/V, ?vomiting blood tinged. she was at [facility] few days ago ER ,was discharged, ctscan abd and pelvis neg at [facility]. pt was admitted for intractable N/V , seen by Gi ,started on clear liquid diet and advanced diet, she was started on reglan and protonix. she improved over next 24-48 hrs hours , she was discharged home. For more details regarding the past history, family history, social history, surgical history and other details, please refer to History and Physical. Allergy Allergies Coded Allergies Type Severity Reaction Last Updated Verified Iodinated Contrast- Oral and IV Dye Allergy Intermediate 03/29/17 Yes metronidazole Allergy Intermediate 03/29/17 Yes vancomycin Allergy Intermediate 03/29/17 Yes Follow up in 14 days. DISPOSITION: Home Comments Discharge Management - 20 minutes. For other details please refer to discharge instructions BENITO ANGULO MD Apr 01, 2017 14:06
== END 2017-03-31 12:20 | disposition home or self-care (01) | DRG 73 ==
LOC: ER 13:07 → 6 SOUTH 15:11
PROVIDERS: ADMIT Internal Medicine; ATTEND Internal Medicine
DX: E11.43 Type 2 diabetes mellitus with diabetic autonomic (poly)neuropathy (principal); K29.71 Gastritis, unspecified, with bleeding; K31.84 Gastroparesis; F17.210 Nicotine dependence, cigarettes, uncomplicated; E78.5 Hyperlipidemia, unspecified; F41.9 Anxiety disorder, unspecified; I10 Essential (primary) hypertension; F32.9 Major depressive disorder, single episode, unspecified; K64.9 Unspecified hemorrhoids; F20.9 Schizophrenia, unspecified; K21.9 Gastro-esophageal reflux disease without esophagitis; K57.90 Diverticulosis of intestine, part unspecified, without perforation or abscess without bleeding; L73.2 Hidradenitis suppurativa; K30 Functional dyspepsia; Z79.4 Long term (current) use of insulin; Z82.49 Family history of ischemic heart disease and other diseases of the circulatory system; Z90.49 Acquired absence of other specified parts of digestive tract; Z90.710 Acquired absence of both cervix and uterus; Z83.3 Family history of diabetes mellitus; Z88.8 Allergy status to other drugs, medicaments and biological substances; Z88.1 Allergy status to other antibiotic agents; Z91.041 Radiographic dye allergy status; Z79.899 Other long term (current) drug therapy
CPT/HCPCS: 36415; 80048; 80053; 82962; 83690; 85027; 96361; 96374; J1170; J1815; J2270; J2405; J2765; J7030; J8597; Q0162; Q0169; S0028; 99285-25